=== PATIENT | male | born 1970 | race Hispanic/Latino ===

== ENCOUNTER 2023-01-30 08:39 | Day surgery (SDC) | payer OTHER ==
[~2023-01-30] VITALS: Ht 165.1 cm; Wt 75.7 kg
[2023-01-30 13:27] VITALS: BP 126/81
== END 2023-01-30 13:15 | disposition home or self-care (01) | DRG 951 ==
LOC: ENDO 08:39
PROVIDERS: ATTEND Surgery
PROC: 0DJD8ZZ Inspection of Lower Intestinal Tract, Via Natural or Artificial Opening Endoscopic (ICD-10-PCS; principal; 2023-01-30)
DX: Z12.11 Encounter for screening for malignant neoplasm of colon (principal); K64.8 Other hemorrhoids